=== PATIENT | male | born 1955 | race Caucasian/White ===

== ENCOUNTER → 2020-11-30 | Outpatient (CLI) | payer OTHER ==
[2016-10-04 18:00] VITALS: BP 140/87
[~2020-11-30] MED LIST: HYDR25CA75 PO
--- NOTE | 2020-11-30 15:01 | KCIC ---
PQRS Compliance Statement: One or more of the following individualized dose reduction techniques were utilized for this examinat ion: 1. Automated exposure control 2. Adjustment of the mA and/or kV according to patient size 3. Use of iterative reconstruction technique CT SCREENING FOR CORONARY ARTERY 11/30/2020 8:54 AM Indication: Cardiovascular screening with history of trauma history of heart disease. COMPARISON: None available. TECHNIQUE: Limited diagnostic axial CT images of the chest were obtained for evaluation of the cardia c structures. Interpretation of the noncardiac structures is provided by the diagnostic radiologist. FINDINGS: Visualized portions of the mediastinum appear normal. No pathologically enlarged thoracic lymph nodes . Ascending thoracic aorta is normal in caliber. No suspicious solid noncalcified pulmonary nodules are identified. There are no pleural effusions. No significant airspace consolidation. Visualized portions of the upper abdomen appear normal. No suspicious osseous abnormality is identified. IMPRESSION: 1. No suspicious abnormality identified involving the visualized portions of the thorax and upper abd omen. 2. Please refer to the separate cardiology report for further details regarding the cardiac structure s. Electronically signed by: Julissa Zepeda MD (11/30/2020 2:58 PM) [id number]
== END ==
LOC: KCIC CT 08:51
PROVIDERS: ATTEND Nurse Practitioner
DX: Z13.6 Encounter for screening for cardiovascular disorders (principal); E78.5 Hyperlipidemia, unspecified; Z82.49 Family history of ischemic heart disease and other diseases of the circulatory system
CPT/HCPCS: 75571